=== PATIENT | male | born 1995 | race Asian ===

== ENCOUNTER → 2016-06-30 | Outpatient (CLI) | payer OTHER ==
--- NOTE | 2016-06-30 21:59 | SP ---
DATE OF PROCEDURE: This is an outpatient study requested for a 20-year-old gentleman with history of seizure about 2 ye ars ago, not on any medications. DESCRIPTION OF PROCEDURE: Routine EEG was recorded digitally. Ggmor-[id number]-[id number] and gpxwa-qr-asf kady ages were recorded and reviewed. All impedances were measured and recorded. Cap electrodes were pl aced in accordance with International 10-20 system of electrode placement. FINDINGS: Symmetrically distributed background activity ranging in frequency between 10 to 12 cycle s per second was seen in the awake state. Photic stimulation produces normal driving. Hyperventila tion was performed and did not elicit any epileptiform activity. When the patient gets drowsy and f alls asleep, background rhythm gets slightly less organized. Occasional slow waves of 4 to 6 cycles per second were observed. No epileptiform transients were seen. No signs of ongoing seizures or l ateralized slowing. IMPRESSION: Normal study. Correlate clinically. Dictated By: LUZ MARIA HARRINGTON/GINA Conf#: [id number] DID#: [id number]
== END | disposition home or self-care (01) ==
LOC: EEG 09:20
PROVIDERS: ATTEND Family Medicine Adult Medicine
DX: G40.909 Epilepsy, unspecified, not intractable, without status epilepticus (principal)
CPT/HCPCS: 95819